=== PATIENT | male | born 1990 | race Caucasian/White ===

== ENCOUNTER 2017-04-13 20:53 | Emergency (ER) | payer MEDICAID, OTHER ==
[~2017-04-13] VITALS: Ht 162.6 cm; Wt 70.0 kg
[2017-04-13 20:57] VITALS: Ht 162.6 cm; Wt 70.0 kg
[2017-04-13] MEDS ORDERED: IBUPROFEN 800 MG TAB PO ONE (22:00)
[2017-04-13] MEDS ORDERED: DIPHTH/TET/ACEL PERTUSS (ADULT) 0.5 ML VIAL IM* ONE (22:00)
--- NOTE | 2017-04-13 22:29 | RADRPT ---
PROCEDURE: Right hand. CLINICAL INDICATION: Pain. TECHNIQUE: Three views including PA, lateral and oblique views of the right hand were obtained. COMPARISON: None. FINDINGS: There is amputation of the fifth digit at the level of the proximal interphalangeal joint. There is no acute fracture or dislocation. The joint spaces are within normal limits. Bone mineralization is mildly decreased. There is a 2 mm radiodensity within the web between the first and second digit s. IMPRESSION: No evidence of acute fracture. 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 Foreign body. Clinically correlate. .Alex Phan MD, Date Time Electronically viewed and signed by .Alex Phan MD, on 04/13/2017 22:29 .T/
[2017-04-13] MEDS ORDERED: CEPH-443 PO (22:30)
[2017-04-13] MEDS ORDERED: SULF1TAB31 PO (22:30)
[2017-04-13] MEDS ORDERED: IBUP-1542 PO (22:30)
--- NOTE | 2017-04-13 22:47 | ERD ---
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 He is having some drainage from the palmar surface and a small area over the thenar eminence that looks like an abrasion. He said this started 3 days ago. He denies fevers. There is pain around the site. He has had no treatment as of yet. He is right-handed. He does not currently have a primary doctor. 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 ROS All systems reviewed and are negative except as per history of present illness. Medications Home Meds Active Scripts Ibuprofen* (Motrin*) 600 Mg Tab, 600 MG PO Q8, #30 TAB Prov:SHERRI MACKAY MD 04/13/17 Sulfamethoxazole/Trimethoprim* (Bactrim Ds* Tablet) 1 Each Tablet, 1 TAB PO BID , #14 TAB Prov:SHERRI MACKAY MD 04/13/17 Cephalexin* (Keflex*) 500 Mg Capsule, 500 MG PO QID for 7 Days, CAP Prov:SHERRI MACKAY MD 04/13/17 Allergies Allergies: Coded Allergies: No Known Allergy (Unverified , 04/13/17) PMhx/Soc Medical and Surgical Hx: pt denies Medical Hx, pt denies Surgical Hx Hx Alcohol Use: No Hx Substance Use: No Hx Tobacco Use: No Smoking Status: Never smoker FmHx Family History: No diabetes Physical Exam Vitals Vital Signs Date Time Temp Pulse Resp B/P Pulse Ox O2 Delivery O2 Flow Rate FiO2 04/13/17 20:57 97.3 67 20 123/80 100 Physical Exam Const: No acute distress Head: Atraumatic Eyes: Normal Conjunctiva ENT: Normal External Ears, Nose and Mouth. Neck: Full range of motion..~ No meningismus. Resp: Clear to auscultation bilaterally Cardio: Regular rate and rhythm, no murmurs Abd: Soft, non tender, non distended. Normal bowel sounds Skin: 0.5 x 0.5 cm area to the right thenar eminence which appears to be an abrasion, no open laceration, no surrounding erythema or streaking, no abscess Back: No midline or flank tenderness Ext: No cyanosis, or edema, full range of motion of the right hand Neur: Awake and alert Psych: Normal Mood and Affect Results 24 hrs Current Medications Medications (Trade) Dose Ordered Sig/Anaid Route PRN Reason Start Time Stop Time Status Last Admin Dose Admin Diphtheria/ Tetanus/Acell Pertussis (Adacel) 0.5 ml ONCE ONCE IM* 04/13/17 22:00 04/13/17 22:01 DC 04/13/17 22:19 Ibuprofen (Motrin) 800 mg ONCE ONCE PO 04/13/17 22:00 04/13/17 22:01 DC 04/13/17 22:18 Procedures/MDM X-ray Hand 3V interpreted by me: Scaphoid: Normal Bones: No fracture Joints: No dislocation Foreign body: Foreign body approximately 2 mm x 2 mm to the right thenar eminence area Patient is a 26-year-old male presents with a right hand injury. 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 It shows a small foreign body in the hand but this is not palpable under the skin. He also notices 3 days ago and at this point I believe the risks of surgically exploring the right hand outweigh the benefits in the emergency department. I do believe the patient will benefit from having the foreign body removed however as it can be a source of infection. Therefore I will refer him to Dr. Fair who is a local hand surgeon and I also told the patient about the [facility] which would have hand surgery available. We will give him a copy of his CD. I will give him Keflex and Bactrim to prevent infection and ibuprofen for pain and inflammation. He could return for any worsening symptoms. Departure Diagnosis: Primary Impression: Foreign body (FB) in soft tissue Additional Impression: Pain of hand Laterality: right Qualified Code: M79.641 - Pain of right hand Condition: Fair Patient Instructions: Foreign Body, Soft Tissue [Not Removed] Referrals: STACI FAIR MD Additional Instructions: Specialist:Usted tiene angela condicin mdica que requiere que gricelda a un especialista dentro de los prximos 1-2 nolan.POR FAVOR,CON FULLER SEGUIMIENTO DE PRIMARIA PHSICIAN refferal. SI USTED NO TIENE UN MDICO GENERAL Y / O USTED NO PUEDE PAGAR francisco a un mdico,los siguientes parnell RECURSOS sido suministrado a usted. ES FULLER RESPONSABILIDAD PARA SER VISTOS POR EL ESPECIALISTA: SHERRI MACKAY MD Apr 13, 2017 22:47
[2017-04-13 23:04] VITALS: BP 126/78; PULSE 56; RESP 20; TEMP 97.4
== END 2017-04-13 23:04 | disposition home or self-care (01) ==
LOC: FTE 20:53
DX: S60.552A Superficial foreign body of left hand, initial encounter (principal); S60.511A Abrasion of right hand, initial encounter; X58.XXXA Exposure to other specified factors, initial encounter; Y92.9 Unspecified place or not applicable; Z23 Encounter for immunization
CPT/HCPCS: 73130; 90471; 90715; Z7502; Z7610